=== PATIENT | male | born 1965 | race Two or more races ===

== ENCOUNTER → 2025-01-07 | Outpatient (CLI) | payer OTHER, SELFPAY ==
--- NOTE | 2025-01-07 08:23 | XR_ITS ---
Examination: Bilateral knees, standing AP single Technique: Standing AP bilateral knees, single view Exam date and time: December 30, 2024 0846 hours INDICATIONS: Bilateral knee pain 10 years. FINDINGS: Significant osteopenia Advanced narrowing medial joint spaces, [id number] medial joint space left knee No fracture IMPRESSION: Advanced narrowing medial joint spaces, [id number] medial joint space left knee
== END | disposition home or self-care (01) ==
LOC: CDIM 08:08
PROVIDERS: PCP Nurse Practitioner Family; Referring Provider Nurse Practitioner Family; Visit Provider Nurse Practitioner Family
DX: M25.862 Other specified joint disorders, left knee (principal)
CPT/HCPCS: 73565

== ENCOUNTER 2025-03-03 07:56 | Outpatient (AMB) | payer OTHER, SELFPAY ==
--- NOTE | 2025-03-03 08:07 | ORTHONT_ITS ---
Vital signs 03/03/25 08:08 Height 1.7 m Height Method Stated Weight 94.858 kg Weight Measurement Method Standing Scale BMI 32.7 BP 143/88 H Blood Pressure Source Automatic Cuff Blood Pressure Location Right Upper Arm Position Sitting Respiration 18 Pulse 71 Pulse Source Monitor Temp 97.6 F Temp Source Temporal Artery Scan Pulse Oximetry (%) 95 Oxygen Delivery Method Room Air Med/Allergies Allergies & Medications Allergies No Known Allergies Allergy (Unknown, Uncoded 03/03/25 08:08) Medication Reconciliation atenolol 50 mg tablet (Tenormin) 50 mg PO QAM #0 tabs 10/04/14 [History Co nfirmed 11/30/21] metformin 500 mg tablet (Glucophage) 1,000 mg PO BIDAC #0 tabs 10/04/14 [History Confirmed 11/30/21] amlodipine 10 mg tablet 10 mg PO QDAY 03/03/25 [History Confirmed 03/03/25] aspirin 81 mg tablet 81 mg PO QDAY 03/03/25 [History Confirmed 03/03/25] fenofibrate 50 mg capsule 50 mg PO QDAY 03/03/25 [History Confirmed 03/03/25] losartan 25 mg tablet 25 mg PO QDAY 03/03/25 [History Confirmed 03/03/25] magnesium 200 mg tablet 200 mg PO QDAY 03/03/25 [History Confirmed 03/03/25] tamsulosin 0.4 mg capsule 0.4 mg PO QDAY 03/03/25 [History Confirmed 03/03/25] Exam Exam Patient is in no acute distress and is cooperative with the examination today. Breathing is nonlabored. In no respiratory distress. Bilateral extremities were evaluated and demonstrates sensation intact to light touch. Palpable pedal pulses are present. No significant edema is present. Bilateral hips were examined. The patient has no pain with log roll of the hips. Internal rotation to 30 degrees and external rotation to 30 degrees is painless. Negative FADIR. The left knee was examined. The left knee is in varus alignment. Range of motion from 0-115 degrees. Knee is stable to varus and valgus as well as AP translation with <5mm. Patient has a negative McMurrays. There is no pain with patellofemoral compression and no crepitus noted. The knee is tender to palpation medially. The right knee was also examined. The right knee is in varus alignment. Range of motion from 0-120 degrees. Knee is stable to varus and valgus as well as AP translation with <5mm. Patient has a negative McMurrays. There is no pain with patellofemoral compression and no crepitus noted. The knee is tender to palpation medially X-rays demonstrate complete joint space obliteration medially. Varus deformity is present Assessment and Plan Problem List (1) Arthritis of both knees: Status: Acute Plan: Patient is a 60-year-old male with bilateral knee pain and bilateral knee arthritis of significant severity. Discussed different treatment options. We discussed possible cortisone injections. He would like a cortisone injection of both knees today Recommend knee cortisone injections as patient would like to proceed with conservative treatment at this time. The risks and benefits of the procedure were reviewed with the patient and patient gave verbal consent to continue with the procedure. Procedure: performed by Dr. Roberts Using sterile technique the Bilateral knees were thoroughly prepped with alcohol, and approximately 1 cc of Kenalog 40 mg/mL and 4 cc of 1% lidocaine was injected into each knee without resistance into the medial tibial femoral joint space. The patient tolerated the procedure. Office Procedures GNS Level of Care Nursing/Assessment Patient Status: Established Patient Nursing Assessment/Reassesment: Medication Reconciliation, Update PMH in EMR and Vital Signs Coordination of Care: Complex Care and Chronic Disease 1-5, Education Complex Pt/Fam, Consent,records obtained, informed consent, Lab and Imaging orders, Results/Orders obtained and Staff clarify orders Established Patient Charge Established Patient Point Assignment: 110 Established Patient Point Charge: EP Level 3 (80-115) Surgical Proc/IM SQ injection Major Surgical Procedure: Yes (knee injection ) Medication Given Medication Given Medication Given: Yes Documented Dose Given: 8 Route: Infiitration Medication Given Medication Given Medication Given: Yes Documented Dose Given: 2 Route: Infiitration Office Meds Xylocaine 10 mg/mL (1 %) injection solution Performing Provider: Fam Roberts MD Performing Location: [facility] Administered by: Fam Roberts MD on 03/03/25 08:28 Dose Route Admin Location Dispensed Lot Number Expiration Date [employer] 40 mL Infiltration 40 mL triamcinolone acetonide 40 mg/mL suspension for injection Performing Provider: Fam Roberts MD Performing Location: [facility] Administered by: Fam Roberts MD on 03/03/25 08:28 Dose Route Admin Location Dispensed Lot Number Expiration Date [facility] [employer] 80 mg intra-articular 2 mL MA Intake Visit Data Collection New Patient or Established: Established Patient (seen at [facility] within 3 years) Reason for Visit:: bilateral knee pain Seen by Clinical Staff ONLY (RN/MA): No Verbal consent obtained for Telemed visit?: No Pattern Chain Maker Supervisor Required: No PCP or OBGYN visit in last 3 months: Yes Hx Now: No Do You Feel Safe at Home: Yes Authorities Contacted: N/A Questionairres Past Medical History Past Medical History Have you ever been diagnosed with any of the following: Neurological Problems Seizures: No Cardiology Problems Hypercholesterolemia: Yes Congestive Heart Failure: No Hypertension: Yes Respiratory Problems Chronic Obstructive Pulmonary Disease (COPD): No Smoking: No Smoking Cessation Counseling: No Smoking Exposure: No Tobacco Use: No Genital/Urinary Problems Renal Disease: No Endocrine Problems Diabetes Mellitus Type 1: No Diabetes Mellitus Type 2: Yes Other Problems Blood Transfusions: No Blood Transfusion Reaction: No Anesthesia Reactions: No Subjective Visit Visit for: follow up visit and knee Immunization / Flu Flu Vaccine in the Last 12 Months: Yes Flu Vaccine Exclusion Criteria: Already Received History of Present Illness Chief complaint: bilateral knee pain Date of injury / onset of symptoms: 10-15 years Patient is a 60-year-old male with bilateral knee pain worse on the left. This been ongoing for over 10 years. He has not had any injections but has tried meloxicam in the past. He has also tried formal physical therapy and is currently in physical therapy. Personal History Red flag PMH: BMI BMI Counceling provided: Yes Pain Pain level (0-10): 7 Pain duration: all day Pain location: inside (medial) Pain quality: sharp, dull and aching Pain timing: increases with activity Ambulatory data Ambulatory device: none Treatments Improvement with previous injections: No Number of Physical Therapy sessions: 2 Improvement with PT: Yes Improvement with NSAIDS: yes Review of Systems Review of Systems: All systems negative unless otherwise noted in HPI.
[2025-03-03 08:08] VITALS: BP 143/88; PULSE 71; RESP 18; TEMP 36.4; O2SAT 95; BMI 32.7
== END 2025-03-03 08:23 | disposition home or self-care (01) ==
PROVIDERS: PCP Orthopaedic Surgery; Referring Provider Orthopaedic Surgery; Supervising Provider Orthopaedic Surgery Adult Reconstructive Orthopaedic Surgery; Visit Provider Orthopaedic Surgery Adult Reconstructive Orthopaedic Surgery
DX: M17.0 Bilateral primary osteoarthritis of knee (principal); M25.562 Pain in left knee; M25.561 Pain in right knee; I10 Essential (primary) hypertension; E78.00 Pure hypercholesterolemia, unspecified
CPT/HCPCS: 20610; 99213; J3301; J3490; G0463

== ENCOUNTER 2025-06-03 10:09 | Outpatient (AMB) | payer OTHER, SELFPAY ==
--- NOTE | 2025-06-03 10:43 | ORTHONT_ITS ---
Vital signs 06/03/25 10:49 Height 1.7 m Height Method Measured Weight 90.945 kg Weight Measurement Method Standing Scale BMI 31.4 BP 125/84 Blood Pressure Source Automatic Cuff Blood Pressure Location Left Upper Arm Position Sitting Respiration 18 Pulse 67 Pulse Source Monitor Temp 98.1 F Temp Source Temporal Artery Scan Pulse Oximetry (%) 97 Oxygen Delivery Method Room Air Med/Allergies Allergies & Medications Allergies No Known Allergies Allergy (Unknown, Uncoded 06/03/25 10:49) Medication Reconciliation atenolol 50 mg tablet (Tenormin) 50 mg PO QAM #0 tabs 10/04/14 [History Con firmed 06/03/25] metformin 500 mg tablet (Glucophage) 1,000 mg PO BIDAC #0 tabs 10/04/14 [History Confirmed 06/03/25] amlodipine 10 mg tablet 10 mg PO QDAY 03/03/25 [History Confirmed 06/03/25] aspirin 81 mg tablet 81 mg PO QDAY 03/03/25 [History Confirmed 06/03/25] fenofibrate 50 mg capsule 50 mg PO QDAY 03/03/25 [History Confirmed 06/03/25] losartan 25 mg tablet 25 mg PO QDAY 03/03/25 [History Confirmed 06/03/25] magnesium 200 mg tablet 200 mg PO QDAY 03/03/25 [History Confirmed 06/03/25] tamsulosin 0.4 mg capsule 0.4 mg PO QDAY 03/03/25 [History Confirmed 06/03/25] Exam Exam Patient is in no acute distress and is cooperative with the examination today. Breathing is nonlabored. In no respiratory distress. Bilateral extremities were evaluated and demonstrates sensation intact to light touch. Palpable pedal pulses are present. No significant edema is present. Bilateral hips were examined. The patient has no pain with log roll of the hips. Internal rotation to 30 degrees and external rotation to 30 degrees is painless. Negative FADIR. The left knee was examined. The left knee is in varus alignment. Range of motion from 0-115 degrees. Knee is stable to varus and valgus as well as AP translation with <5mm. Patient has a negative McMurrays. There is no pain with patellofemoral compression and no crepitus noted. The knee is tender to palpation medially. The right knee was also examined. The right knee is in varus alignment. Range of motion from 0-120 degrees. Knee is stable to varus and valgus as well as AP translation with <5mm. Patient has a negative McMurrays. There is no pain with patellofemoral compression and no crepitus noted. The knee is tender to palpation medially X-rays demonstrate complete joint space obliteration medially. Varus deformity is present Assessment and Plan Problem List (1) Arthritis of both knees: Status: Acute Plan: Patient is a 60-year-old male with bilateral knee pain and bilateral knee arthritis of significant severity. Discussed different treatment options. We discussed possible cortisone injections. He would like a cortisone injection of both knees today Recommend knee cortisone injections as patient would like to proceed with conservative treatment at this time. The risks and benefits of the procedure were reviewed with the patient and patient gave verbal consent to continue with the procedure. Procedure: performed by Dr. Roberts Using sterile technique the Bilateral knees were thoroughly prepped with alcohol, and approximately 1 cc of Kenalog 40 mg/mL and 4 cc of 1% lidocaine was injected into each knee without resistance into the medial tibial femoral joint space. The patient tolerated the procedure. Office Procedures GNS Level of Care Nursing/Assessment Patient Status: Established Patient Nursing Assessment/Reassesment: Medication Reconciliation, Orthostatic Vitals, Update PMH in EMR and Vital Signs Coordination of Care: Complex Care and Chronic Disease 1-5, Education Complex Pt/Fam, Consent,records obtained, informed consent, Results/Orders obtained and Staff clarify orders Established Patient Charge Established Patient Point Assignment: 105 Established Patient Point Charge: EP Level 3 (80-115) Surgical Proc/IM SQ injection Major Surgical Procedure: Yes (KNEE INJECTION ) Medication Given Medication Given Medication Given: Yes Documented Dose Given: 1 Route: Infiitration Medication Given Medication Given Medication Given: Yes Documented Dose Given: 1 Route: Infiitration Medication Given Medication Given Medication Given: Yes Documented Dose Given: 4 Route: Infiitration Medication Given Medication Given Medication Given: Yes Documented Dose Given: 4 Route: Infiitration Office Meds methylprednisolone acetate 80 mg/mL suspension for injection Performing Provider: Fam Roberts MD Performing Location: [facility] Administered by: Fam Roberts MD on 06/03/25 11:07 Dose Route Admin Location Dispensed Lot Number Expiration Date [facility] [employer] Application Administrator 80 mg intra-articular 1 mL [id number] 11/11/26 0467-2066-50 [facility] methylprednisolone acetate 80 mg/mL suspension for injection Performing Provider: Fam Roberts MD Performing Location: [facility] Administered by: Fam Roberts MD on 06/03/25 11:07 Dose Route Admin Location Dispensed Lot Number Expiration Date [facility] [employer] Application Administrator 80 mg intra-articular 1 mL [id number] 11/11/26 1317-1032-94 [facility] ropivacaine (PF) 2 mg/mL (0.2 %) injection solution Performing Provider: Fam Roberts MD Performing Location: [facility] Administered by: Fam Roberts MD on 06/03/25 11:07 Dose Route Admin Location Dispensed Lot Number Expiration Date [employer] Administrator 20 mL Infiltration 20 mL [id number] 11/11/27 43742-160-65 [email or web address] ropivacaine (PF) 2 mg/mL (0.2 %) injection solution Performing Provider: Fam Roberts MD Performing Location: [facility] Administered by: Fam Roberts MD on 06/03/25 11:07 Dose Route Admin Location Dispensed Lot Number Expiration Date [place] [employer] Administrator 20 mL Infiltration 20 mL [id number] 11/11/27 17896-161-58 [email or web address] [place] Intake Visit Data Collection New Patient or Established: Established Patient (seen at [facility] within 3 years) Reason for Visit:: bilateral knee pain/3 MONTH INJECTION Seen by Clinical Staff ONLY (RN/MA): No Verbal consent obtained for Telemed visit?: No Caustic Preparer Required: No PCP or OBGYN visit in last 3 months: Yes Hx Now: No Do You Feel Safe at Home: Yes Authorities Contacted: N/A Questionairres Past Medical History Past Medical History Have you ever been diagnosed with any of the following: Neurological Problems Seizures: No Cardiology Problems Hypercholesterolemia: Yes Congestive Heart Failure: No Hypertension: Yes Respiratory Problems Chronic Obstructive Pulmonary Disease (COPD): No Smoking: No Smoking Cessation Counseling: No Smoking Exposure: No Tobacco Use: No Genital/Urinary Problems Renal Disease: No Endocrine Problems Diabetes Mellitus Type 1: No Diabetes Mellitus Type 2: Yes Other Problems Blood Transfusions: No Blood Transfusion Reaction: No Anesthesia Reactions: No Subjective Visit Visit for: follow up visit and knee Immunization / Flu Flu Vaccine in the Last 12 Months: Yes Flu Vaccine Exclusion Criteria: Already Received History of Present Illness Chief complaint: bilateral knee pain Date of injury / onset of symptoms: 10-15 years Patient is a 60-year-old male with bilateral knee pain worse on the left. This been ongoing for over 10 years. He has not had any injections but has tried meloxicam in the past. He has also tried formal physical therapy and is currently in physical therapy. Personal History Red flag PMH: BMI BMI Counceling provided: Yes Pain Pain level (0-10): 7 Pain duration: all day Pain location: inside (medial) Pain quality: sharp, dull and aching Pain timing: increases with activity Ambulatory data Ambulatory device: none Treatments Improvement with previous injections: No Number of Physical Therapy sessions: 2 Improvement with PT: Yes Improvement with NSAIDS: yes Review of Systems Review of Systems: All systems negative unless otherwise noted in HPI.
[2025-06-03 10:49] VITALS: BP 125/84; PULSE 67; RESP 18; TEMP 36.7; O2SAT 97; BMI 31.4
== END 2025-06-03 10:51 | disposition home or self-care (01) ==
PROVIDERS: PCP Orthopaedic Surgery; Referring Provider Orthopaedic Surgery; Supervising Provider Orthopaedic Surgery Adult Reconstructive Orthopaedic Surgery; Visit Provider Orthopaedic Surgery Adult Reconstructive Orthopaedic Surgery
DX: M17.0 Bilateral primary osteoarthritis of knee (principal); M25.562 Pain in left knee; M25.561 Pain in right knee; I10 Essential (primary) hypertension; E78.00 Pure hypercholesterolemia, unspecified; E11.9 Type 2 diabetes mellitus without complications
CPT/HCPCS: 20610; 99213; J1010; J2795; G0463

== ENCOUNTER 2025-09-20 10:02 | Outpatient (AMB) | payer OTHER, SELFPAY ==
--- NOTE | 2025-09-20 10:25 | PD.ORTHCLVIS ---
Vital signs 09/20/25 10:26 Height 1.7 m Height Method Stated Weight 91.654 kg Weight Measurement Method Standing Scale BMI 31.7 BP 139/85 H Blood Pressure Source Automatic Cuff Blood Pressure Location Left Upper Arm Position Sitting Respiration 16 Pulse 68 Pulse Source Monitor Temp 97.8 F Temp Source Temporal Artery Scan Pulse Oximetry (%) 95 Oxygen Delivery Method Room Air Med/Allergies Allergies & Medications Allergies No Known Allergies Allergy (Unknown, Uncoded 09/20/25 10:27) Medication Reconciliation atenolol 50 mg tablet (Tenormin) 50 mg PO QAM #0 tabs 10/04/14 [History Confirmed 09/20/25] metformin 500 mg tablet (Glucophage) 1,000 mg PO BIDAC #0 tabs 10/04/14 [History Confirmed 09/20/25] amlodipine 10 mg tablet 10 mg PO QDAY 03/03/25 [History Confirmed 09/20/25] aspirin 81 mg tablet 81 mg PO QDAY 03/03/25 [History Confirmed 09/20/25] fenofibrate 50 mg capsule 50 mg PO QDAY 03/03/25 [History Confirmed 09/20/25] losartan 25 mg tablet 25 mg PO QDAY 03/03/25 [History Confirmed 09/20/25] magnesium 200 mg tablet 200 mg PO QDAY 03/03/25 [History Confirmed 09/20/25] tamsulosin 0.4 mg capsule 0.4 mg PO QDAY 03/03/25 [History Confirmed 09/20/25] Exam Exam Patient is in no acute distress and is cooperative with the examination today. Breathing is nonlabored. In no respiratory distress. Bilateral extremities were evaluated and demonstrates sensation intact to light touch. Palpable pedal pulses are present. No significant edema is present. Bilateral hips were examined. The patient has no pain with log roll of the hips. Internal rotation to 30 degrees and external rotation to 30 degrees is painless. Negative FADIR. The left knee was examined. The left knee is in varus alignment. Range of motion from 0-115 degrees. Knee is stable to varus and valgus as well as AP translation with <5mm. Patient has a negative McMurrays. There is no pain with patellofemoral compression and no crepitus noted. The knee is tender to palpation medially. The right knee was also examined. The right knee is in varus alignment. Range of motion from 0-120 degrees. Knee is stable to varus and valgus as well as AP translation with <5mm. Patient has a negative McMurrays. There is no pain with patellofemoral compression and no crepitus noted. The knee is tender to palpation medially X-rays demonstrate complete joint space obliteration medially. Varus deformity is present of both knees. Assessment and Plan Problem List (1) Arthritis of both knees: Status: Acute Plan: Patient is a 60-year-old male with bilateral knee pain and bilateral knee arthritis of significant severity. He has failedconservative treatment including 2 injections and pt and meloxicam. We will start with the left knee as this is affecting him more. The nature and purpose of the total knee replacement, alternative method(s) of treatment, the material risks involved, and the possibility of complications were fully explained to the patient. The patient does NOT have any of the following contraindications to TKA: - Active infection of the knee joint, OR - Active systemic bacteremia, OR - Active skin infection or open wound at surgical site, OR - Neuropathic arthritis, OR - Severe, rapidly progressive neurological disease, OR - Severe medical condition that makes risks of surgery outweigh the potential benefit The patient was told the most common risks and complications associated with a total knee replacement include, but are not limited to: blood clots in the leg, fatal pulmonary embolism, dislocation of the prosthesis, intraoperative and postoperative fractures of the femur or tibia, infection, failure of the prosthesis or grafting materials, complications from anesthesia, reactions to blood transfusions, postoperative leg length inequality, instability of the knee replacement, nerve damage or injury, vascular injury, delayed wound healing, infection, other injury or even . In addition, there are risks associated with anesthesia given during this operation. Also, the patient was told that after undergoing a total knee replacement there may still be persistent pain or disability. The patient was informed that the success of this operation in part depends upon the mechanical devices which are going to be implanted and that these devices can fail or malfunction, and may need to be repaired or replaced and there are no guarantees as to the longevity of this device or its parts and that it or its parts could fail prematurely. The patient was also notified that during the course of surgery, there may be a need to use bone graft from donors, and that any bone graft used will be carefully screened for communicable diseases, including AIDS, hepatitis, Wilber-Creutzfeldt, or other diseases, but despite the screening procedures, there is a small chance that they could contract one of these diseases. Finally, the patient was asked to follow completely and fully with all advice and recommended treatments, and that recovery and ultimate outcome are affected by their compliance with recommended treatment. We discussed the risks, benefits and treatment alternatives, and the patient is interested in proceeding with surgery. We will try to set this up as expeditiously as possible. Office Procedures GNS Level of Care Nursing/Assessment Patient Status: Established Patient Nursing Assessment/Reassesment: Medication Reconciliation, Update PMH in EMR and Vital Signs Coordination of Care: Complex Care and Chronic Disease 1-5, Education Complex Pt/Fam, Consent,records obtained, informed consent, Results/Orders obtained and Staff clarify orders Established Patient Charge Established Patient Point Assignment: 95 Established Patient Point Charge: Level 3 (80-115) MA Intake Visit Data Collection New Patient or Established: Established Patient (seen at [facility] within 3 years) Reason for Visit:: bilateral knee pain/3 MONTH INJECTION Seen by Clinical Staff ONLY (RN/MA): No Verbal consent obtained for Telemed visit?: No Director Of Communications Required: No PCP or OBGYN visit in last 3 months: Yes Hx Now: No Do You Feel Safe at Home: Yes Authorities Contacted: N/A Questionairres Past Medical History Past Medical History Have you ever been diagnosed with any of the following: Neurological Problems Seizures: No Cardiology Problems Hypercholesterolemia: Yes Congestive Heart Failure: No Hypertension: Yes Respiratory Problems Chronic Obstructive Pulmonary Disease (COPD): No Smoking: No Smoking Cessation Counseling: No Smoking Exposure: No Tobacco Use: No Genital/Urinary Problems Renal Disease: No Endocrine Problems Diabetes Mellitus Type 1: No Diabetes Mellitus Type 2: Yes Other Problems Blood Transfusions: No Blood Transfusion Reaction: No Anesthesia Reactions: No Subjective Visit Visit for: follow up visit and knee Immunization / Flu Flu Vaccine in the Last 12 Months: Yes Flu Vaccine Exclusion Criteria: Already Received History of Present Illness Chief complaint: bilateral knee pain Date of injury / onset of symptoms: 10-15 years Patient is a 60-year-old male with bilateral knee pain worse on the left. This been ongoing for over 10 years. He has had meloxicam in past. He has also tried formal physical therapy and is currently in physical therapy. He has had 2 rounds of injections on the both knees. The pain is affecting his quality of life and happiness. His a1c is 6.2. Personal History Red flag PMH: BMI BMI Counceling provided: Yes Pain Pain level (0-10): 7 Pain duration: all day Pain location: inside (medial) Pain quality: sharp, dull and aching Pain timing: increases with activity Ambulatory data Ambulatory device: none Treatments Improvement with previous injections: No Number of Physical Therapy sessions: 2 Improvement with PT: Yes Improvement with NSAIDS: yes Review of Systems Review of Systems: All systems negative unless otherwise noted in HPI.
[2025-09-20 10:26] VITALS: BP 139/85; PULSE 68; RESP 16; TEMP 36.6; O2SAT 95; BMI 31.7
== END 2025-09-20 10:37 | disposition home or self-care (01) ==
LOC: HODSRG 10:02
PROVIDERS: PCP Orthopaedic Surgery; Referring Provider Orthopaedic Surgery; Supervising Provider Orthopaedic Surgery Adult Reconstructive Orthopaedic Surgery; Visit Provider Orthopaedic Surgery Adult Reconstructive Orthopaedic Surgery
DX: M25.562 Pain in left knee (principal); M25.561 Pain in right knee; M17.0 Bilateral primary osteoarthritis of knee; I10 Essential (primary) hypertension; E11.9 Type 2 diabetes mellitus without complications; Z79.84 Long term (current) use of oral hypoglycemic drugs
CPT/HCPCS: 99213; G0463